=== PATIENT | male | born 1935 | race Two or more races ===

== ENCOUNTER 2024-11-15 13:43 | Emergency (ER) | payer OTHER ==
[~2024-11-15] VITALS: Ht 162.6 cm; Wt 68.0 kg
[2024-11-15 13:49] VITALS: TEMP 98.8
[2024-11-15] MEDS: IV NS 0.9% 1,000 ML BAG IV ONE (14:35)
[2024-11-15] MEDS ORDERED: DABI75CA3 PO (14:52)
[2024-11-15] MEDS ORDERED: PANT20TA2 PO (14:52)
[2024-11-15] MEDS ORDERED: AMLO10TA4 PO (14:52)
[2024-11-15] MEDS ORDERED: TAMS-12 PO (14:52)
[2024-11-15 15:01] LABS: BASOPHILS % (AUTO) 0.2 % (0.0-2.0); EOSINOPHILS % (AUTO) 0.2 % (0.0-6.0); HEMATOCRIT 34 % (39-51); HEMOGLOBIN 11.5 g/dL (13.5-17.5); LYMPHOCYTES # (AUTO) 1.1 K/uL (0.8-4.8); LYMPHOCYTES % (AUTO) 10.5 % (20.0-44.0); MEAN CORPUSCULAR HEMOGLOBIN 30 PG (26.0-33.0); MEAN CORPUSCULAR HGB CONC 34 g/dl (31.0-36.0); MEAN CORPUSCULAR VOLUME 89 fL (80-96); MONOCYTES # (AUTO) 1.2 K/uL (0.1-1.30); NEUTROPHILS # (AUTO) 7.8 K/uL (1.8-8.9); NEUTROPHILS % (AUTO) 77.1 % (43.0-81.0); PLATELET COUNT (AUTO) 137 K/uL (150-450); RED BLOOD CELL COUNT(AUTO) 3.86 MIL/uL (4.5-6.0); RED CELL DISTRIBUTION WIDTH 13.5 % (11.5-15.0); WHITE BLOOD COUNT (AUTO) 10.2 K/uL (4.3-11.0)
[2024-11-15 15:27] LABS: CALCIUM, SERUM 9.1 mg/dL (8.5-10.1); CARBON DIOXIDE 29 mmol/L (21-32); CHLORIDE 107 mmol/L (98-107); CREATININE 1.2 mg/dL (0.6-1.3); GLUCOSE 119 mg/dL (74-106); POTASSIUM 4.7 mmol/L (3.5-5.1); SODIUM SERUM 142 mmol/L (136-145); UREA NITROGEN, BLOOD 22 mg/dL (7-18)
[2024-11-15 17:24] VITALS: BP 151/62; O2SAT 95
== END 2024-11-15 19:15 | disposition short-term general hospital (02) ==
LOC: ER 13:49
DX: R53.1 Weakness (principal); J81.1 Chronic pulmonary edema; I11.9 Hypertensive heart disease without heart failure; R41.82 Altered mental status, unspecified; Z79.02 Long term (current) use of antithrombotics/antiplatelets; Z20.822 Contact with and (suspected) exposure to COVID-19
CPT/HCPCS: 99285; 96360; 70450; 71045; 87426; 93005; 87804 ×2; 73502; 85025; 80048; 36415; 84484 ×2; 83880; J7030

== ENCOUNTER 2025-09-18 14:12 | Emergency (ER) | payer OTHER ==
[~2025-09-18] VITALS: Ht 175.3 cm; Wt 61.2 kg
[~2025-09-18 14:12] MED LIST: AMLO10TA4 PO; DABI75CA3 PO; PANT20TA2 PO; TAMS-12 PO
[2025-09-18 14:21] VITALS: TEMP 98.2
[2025-09-18] MEDS: IV NS 0.9% 500 ML BAG IV ONE (14:51)
[2025-09-18 15:12] LABS: PLATELET COUNT (AUTO) 213 K/uL (150-450); RED BLOOD CELL COUNT(AUTO) 4.01 MIL/uL (4.5-6.0); RED CELL DISTRIBUTION WIDTH 15.0 % (11.5-15.0); WHITE BLOOD COUNT (AUTO) 9.9 K/uL (4.3-11.0)
[2025-09-18 15:24] LABS: CALCIUM, SERUM 8.9 mg/dL (8.5-10.1); CREATININE 0.8 mg/dL (0.6-1.3); SODIUM SERUM 144 mmol/L (136-145); UREA NITROGEN, BLOOD 18 mg/dL (7-18)
[2025-09-18 15:29] LABS: INR 1.1 (0.91-1.10)
[2025-09-18 15:31] LABS: LACTIC ACID 1.8 mmol/L (0.4-2.0)
[2025-09-18 15:37] LABS: ASPARTATE AMINOTRANSFERASE 26 U/L (15-37); TOTAL PROTEIN, SERUM 7.9 g/dL (6.4-8.2)
[2025-09-18] MEDS ORDERED: FUROSEMIDE 20 MG/2 ML VIAL ONE (16:51)
[2025-09-18] MEDS: FUROSEMIDE 20 MG/2 ML VIAL IV ONE (16:56)
[2025-09-18 17:53] LABS: APPEARANCE,URINE CLOUDY (CLEAR)
[2025-09-18 17:54] LABS: BLOOD, URINE TRACE Ery/uL (NEGATIVE)
[2025-09-18 17:55] LABS: LEUKOCYTE ESTERASE ,URINE 3+ (NEGATIVE); NITRITE, URINE POSITIVE (NEGATIVE); UGLUCOSE NEGATIVE (NEGATIVE)
[2025-09-18 17:57] LABS: ADD URINE CULTURE YES; SQUAMOUS EPITHELIAL CELL,UR Few /HPF (None Seen)
[2025-09-18 17:58] LABS: URINE AMORPHOUS PHOSPHATES Moderate /HPF (None Seen)
[2025-09-18 19:47] VITALS: BP 159/62; O2SAT 97
== END 2025-09-18 20:40 | disposition short-term general hospital (02) ==
LOC: ER 14:14
DX: J81.1 Chronic pulmonary edema (principal); R53.1 Weakness; I11.0 Hypertensive heart disease with heart failure; I48.91 Unspecified atrial fibrillation; Z79.01 Long term (current) use of anticoagulants; Z86.73 Personal history of transient ischemic attack (TIA), and cerebral infarction without residual deficits; Z95.0 Presence of cardiac pacemaker; Z20.822 Contact with and (suspected) exposure to COVID-19
CPT/HCPCS: 99285; 96374; 71045; 87426; 93005; 87804 ×2; 84145; 85025; 80048; 87040 ×2; 87086; 83605; 80076; 81001; 36415; 84484 ×2; 85730; 83880; J1938